=== PATIENT | female | born 1985 | race Caucasian/White ===

== ENCOUNTER 2017-02-10 10:02 | Emergency (ER) | payer OTHER ==
[2017-02-10] MEDS ORDERED: NS 1,000 ML IV ONE (10:24)
--- NOTE | 2017-02-10 10:24 | EDPHY ---
H & P Stated Complaint: Abdominal pain after tubing accident HPI/ROS: CHIEF COMPLAINT: Abdominal pain, injury 2 days ago HISTORY OF PRESENT ILLNESS: Patient complains of left upper abdominal pain status post tubing injury. She was tubing 2 days ago. She said she jumped off of one tube to another when she felt a sudden onset of pain. Some mild to moderate pain. She describes the pain as just being present of it and aware of it. Difficult for her to fully qualify or quantify. It is worse with palpation Valsalva. She feels a bump on the left upper quadrant. Some diarrhea. No nausea or vomiting. No fever chills. No bloody stools. No trauma elsewhere. She does have a history of internal hemorrhage last fall from a skiing injury. She is concerned that this may also be a hernia. No surgical intervention at the time of the injury last fall. No other associated complaints or modifying factors. REVIEW OF SYSTEMS: Ten systems reviewed and are negative unless otherwise noted in the HPI PAST MEDICAL HISTORY: Previous abdominal trauma with reported internal hemorrhage. No surgical intervention SOCIAL HISTORY: Nonsmoker. Lives near [place] and moving to send the a go this week FAMILY HISTORY: Noncontributory EXAMINATION General Appearance: Alert, no distress Head: normocephalic, atraumatic Eyes: Pupils equal and round, no conjunctival pallor or injection ENT, Mouth: Mucous membranes moist Neck: Normal inspection, supple, non-tender Respiratory: Lungs are clear to auscultation. No wheezing, rhonchi or crackles Cardiovascular: Regular rate and rhythm. No murmur. Gastrointestinal: Abdomen is soft and nondistended. There is tenderness and fullness in the left upper quadrant. There is a palpable firmness in the left upper quadrant. I do not appreciate a hernia. No tympany rigidity. No CVA tenderness. Nonacute abdomen. Back: non-tender, no bony abnormalities Neurological: A&O, nonfocal, normal gait Skin: Warm and dry, no rash Extremities: Nontender, no pedal edema Psychiatric: Mood and affect normal DIFFERENTIAL DIAGNOSES: Including but not limited to abdominal wall hematoma, rectus sheath hematoma, hernia, rectus tear, rectus strain, contusion MDM: 10:25 a.m. Left upper quadrant abdominal pain and fullness after injury 2 days ago while tubing. She does have point tenderness. There is a palpable firmness. Vital signs are stable. Bowel sounds are symmetric. She is in no acute distress. CT scan has been ordered as the patient would like to know what it is that she is feeling. She does have moderate tenderness upon palpation, thus I have ordered the CT scan. 11:50 a.m. Notified by radiologist Dr. Purdy. CT scan of the abdomen pelvis is within Normal limits. No acute findings 12:00 p.m. I have re-evaluated the patient and updated her on the findings. I have also informed her of the normal laboratory studies. She remains comfortable in no acute distress. Discharged home with symptomatic instructions including over- the-counter anti-inflammatories as needed. Follow up with primary care physician for leaving town or insane the a go later the next week. Return to the ER for worsening pain, vomiting, fever SUPERVISION: Patient was evaluated in conjunction with the supervising physician. Please see their note for details. Source: Patient Exam Limitations: No limitations - Personal History LMP (Females 10-55): 1-7 Days Ago Current Tetanus/Diphtheria Vaccine: Yes Current Tetanus Diphtheria and Acellular Pertussis (TDAP): Yes - Medical/Surgical History Hx Asthma: No Hx Chronic Respiratory Disease: No Hx Diabetes: No Hx Cardiac Disease: No Hx Renal Disease: No Hx Cirrhosis: No Hx Alcoholism: No Hx HIV/AIDS: No Hx Splenectomy or Spleen Trauma: No Other PMH: knee surgery - Social History Smoking Status: Never smoked Constitutional: Initial Vital Signs Temperature (C) 98.4 F 02/10/17 10:05 Heart Rate 53 L 02/10/17 10:05 Respiratory Rate 15 02/10/17 10:05 Blood Pressure 98/64 L 02/10/17 10:05 O2 Sat (%) 100 02/10/17 10:05 O2 Delivery Mode Room Air Allergies/Adverse Reactions: No Known Allergies Allergy (Unverified 02/10/17 10:05) Home Medications: Medication Instructions Recorded NK [No Known Home Meds] 02/10/17 Medical Decision Making - Diagnostics Imaging Results: Imaging Impressions Abdomen CT 02/10/17 10:24 Impression: 1. No acute findings in abdomen or pelvis. 2. Moderate stool in the colon. 3. Additional findings as above. Findings discussed with Samy Slaughter 02/10/2017, at 1144 hours. - Data Points Laboratory Results: Laboratory Results 02/10/17 10:30 02/10/17 10:30 02/10/17 02/10/17 02/10/17 10:30 10:30 10:30 WBC 4.89 10^3/uL 10^3/uL (3.80-9.50) RBC 4.91 10^6/uL 10^6/uL (4.18-5.33) Hgb 14.7 g/dL g/dL (12.6-16.3) Hct 42.1 % % (38.0-47.0) MCV 85.7 fL fL (81.5-99.8) MCH 29.9 pg pg (27.9-34.1) MCHC 34.9 g/dL g/dL (32.4-36.7) RDW 13.0 % % (11.5-15.2) Plt Count 154 10^3/uL 10^3/uL (150-400) MPV 11.0 fL fL (8.7-11.7) Neut % (Auto) 55.1 % % (39.3-74.2) Lymph % (Auto) 32.9 % % (15.0-45.0) [place] % (Auto) 6.1 % % (4.5-13.0) Eos % (Auto) 4.9 % % (0.6-7.6) Baso % (Auto) 0.8 % % (0.3-1.7) Nucleat RBC Rel Count 0.0 % % (0.0-0.2) Absolute Neuts (auto) 2.69 10^3/uL 10^3/uL (1.70-6.50) Absolute Lymphs (auto) 1.61 10^3/uL 10^3/uL (1.00-3.00) Absolute Monos (auto) 0.30 10^3/uL 10^3/uL (0.30-0.80) Absolute Eos (auto) 0.24 10^3/uL 10^3/uL (0.03-0.40) Absolute Basos (auto) 0.04 10^3/uL 10^3/uL (0.02-0.10) Absolute Nucleated RBC 0.00 10^3/uL 10^3/uL (0-0.01) Immature Gran % 0.2 % % (0.0-1.1) Immature Gran # 0.01 10^3/uL 10^3/uL (0.00-0.10) Sodium 139 mEq/L mEq/L (134-144) Potassium 4.0 mEq/L mEq/L (3.5-5.2) Chloride 106 mEq/L mEq/L (97-110) Carbon Dioxide 22 mEq/l mEq/l (22-31) Anion Gap 11 mEq/L mEq/L (8-16) BUN 14 mg/dL mg/dL (7-23) Creatinine 0.9 mg/dL mg/dL (0.6-1.0) Estimated GFR > 60 Glucose 83 mg/dL mg/dL (70-100) Calcium 9.4 mg/dL mg/dL (8.5-10.4) Total Bilirubin 0.6 mg/dL mg/dL (0.1-1.4) Conjugated Bilirubin 0.2 mg/dL mg/dL (0.0-0.5) Unconjugated Bilirubin 0.4 mg/dL mg/dL (0.0-1.1) AST 21 IU/L IU/L (14-46) ALT 28 IU/L IU/L (9-52) Alkaline Phosphatase 42 IU/L IU/L (38-126) Total Protein 7.2 g/dL g/dL (6.3-8.2) Albumin 4.6 g/dL g/dL (3.5-5.0) Lipase 74.0 IU/L IU/L (23-300) Beta HCG, Qual NEGATIVE Medications Given: Discontinued Medications Sodium Chloride (Ns) 1,000 mls @ 0 mls/hr IV EDNOW ONE; Wide Open PRN Reason: Protocol Stop: 02/10/17 10:25 Last Admin: 02/10/17 10:44 Dose: 1,000 mls Departure - Departure Disposition: Home, Routine, Self-Care Clinical Impression: Abdominal muscle strain Qualifiers: Encounter type: initial encounter Qualified Code(s): S39.011A - Strain of muscle, fascia and tendon of abdomen, initial encounter Condition: Good Instructions: Muscle Strain (ED), Acute Abdominal Pain (ED) Additional Instructions: 1. Weightbearing as tolerated 2. Anti-inflammatories [id number] 3. Follow up with primary care physician here or when you arrive in [place] Referrals: Alma Rosa Gates MD [Primary Care Provider] - As per Instructions
[2017-02-10 10:45] LABS: % IMMATURE GRANULYOCYTES 0.2 % (0.0-1.1); ABSOLUTE IMMATURE GRANULOCYTES 0.01 10^3/uL (0.00-0.10); ADD DIFF? NO; ADD MORPH? NO; ADD SCAN? NO; ATYPICAL LYMPHOCYTE FLAG 10 (0-99); FRAGMENT RBC FLAG 0 (0-99); HEMATOCRIT 42.1 % (38.0-47.0); HEMOGLOBIN 14.7 g/dL (12.6-16.3); LEFT SHIFT FLG 0 (0-99); LIPEMIA HEMOLYSIS FLAG 90 (0-99); MEAN CELL HEMOGLOBIN 29.9 pg (27.9-34.1); MEAN CELL HEMOGLOBIN CONCENTR. 34.9 g/dL (32.4-36.7); MEAN CELL VOLUME 85.7 fL (81.5-99.8); PLATELET CLUMPS FLAG 0 (0-99); PLATELET COUNT 154 10^3/uL (150-400); RED BLOOD CELL COUNT 4.91 10^6/uL (4.18-5.33)
[2017-02-10 11:10] LABS: ALANINE AMINOTRANSFERASE 28 IU/L (9-52); ALBUMIN 4.6 g/dL (3.5-5.0); ALKALINE PHOSPHATASE 42 IU/L (38-126); ANION GAP 11 mEq/L (8-16); ASPARTATE AMINOTRANSFERASE 21 IU/L (14-46); BILIRUBIN,TOTAL 0.6 mg/dL (0.1-1.4); BILIRUBIN-CONJUGATED 0.2 mg/dL (0.0-0.5); BILIRUBIN-UNCONJUGATED 0.4 mg/dL (0.0-1.1); CALCIUM 9.4 mg/dL (8.5-10.4); CARBON DIOXIDE 22 mEq/l (22-31); CHLORIDE 106 mEq/L (97-110); CREATININE 0.9 mg/dL (0.6-1.0); GLOMERULAR FILTRATION RATE > 60; GLUCOSE 83 mg/dL (70-100); SODIUM 139 mEq/L (134-144); TOTAL PROTEIN 7.2 g/dL (6.3-8.2)
[2017-02-10] MEDS ORDERED: IOPAMIDOL (ISOVUE-300) 100 ML BTL ONE (11:15)
[2017-02-10 12:26] VITALS: BP 98/58; PULSE 46; RESP 18; TEMP 97.9; O2SAT 99
== END 2017-02-10 12:26 | disposition home or self-care (01) ==
DX: S39.011A Strain of muscle, fascia and tendon of abdomen, initial encounter (principal); E86.9 Volume depletion, unspecified; X58.XXXA Exposure to other specified factors, initial encounter; Y99.8 Other external cause status; Y93.39 Activity, other involving climbing, rappelling and jumping off
CPT/HCPCS: Q9967